=== PATIENT | female | born 1960 | race Caucasian/White ===

== ENCOUNTER 2020-07-12 08:57 | Observation (INO) | payer BC ==
[~2020-07-12] VITALS: Ht 162.6 cm; Wt 109.3 kg
[~2020-07-12 08:57] MED LIST: ASPIRIN EC81 MG PO
[2020-07-12 09:42] LABS: HEMOGLOBIN 10.5 gm/dl (12.3-15.3); RED BLOOD COUNT 4.3 M/UL (4.00-5.10); WHITE BLOOD COUNT 11.6 K/UL (4.5-11.0)
[2020-07-12 10:14] LABS: BUN/CREATININE RATIO 17 (0-10)
[2020-07-12] MEDS ORDERED: METOPROLOL SUCC50 MG PO (13:14)
[2020-07-12] MEDS ORDERED: HYDROCODONE-AC1 EAC1 PO (13:17)
[2020-07-12] MEDS ORDERED: ZYRTEC10 MG PO (14:56)
[2020-07-13 03:58] LABS: HEMOGLOBIN 9.4 gm/dl (12.3-15.3); RED BLOOD COUNT 3.88 M/UL (4.00-5.10); WHITE BLOOD COUNT 10.4 K/UL (4.5-11.0)
[2020-07-15] MEDS ORDERED: XOPENEX HFA15 GM INH (10:01)
[2020-07-15] MEDS ORDERED: METOPROLOL SUCC25 MG PO (10:01)
[2020-07-15] MEDS ORDERED: OMNICEF 300 MG300 MG PO (10:01)
[2020-07-15] MEDS ORDERED: ELIQUIS 5 MG TAB5 MG PO (10:01)
--- NOTE | 2020-07-15 10:59 | NUR ---
ROOM AIR OXYGEN SAT 87%.
[2020-07-15] MEDS ORDERED: DILTIAZEM 24HR180 M1 PO (11:40)
[2020-07-15] MEDS ORDERED: HYDROCODON-ACE1 EAC4 PO (14:29)
[2020-08-16] MEDS ORDERED: MULTAQ400 MG PO (08:23)
[2020-08-16] MEDS ORDERED: SOTALOL80 MG PO (10:27)
== END 2020-07-15 16:25 | disposition home or self-care (01) ==
LOC: ER1 08:57 → PROG CARE 12:52 → CDU 12:52 → PROG CARE 07-13 04:28
PROVIDERS: Emergency Medicine; Physician Assistant Medical; ADMIT Internal Medicine
DX: I48.91 Unspecified atrial fibrillation (principal); I10 Essential (primary) hypertension; D50.9 Iron deficiency anemia, unspecified; F17.210 Nicotine dependence, cigarettes, uncomplicated; J18.9 Pneumonia, unspecified organism; S22.42XA Multiple fractures of ribs, left side, initial encounter for closed fracture; Z88.0 Allergy status to penicillin; Z83.3 Family history of diabetes mellitus; Z79.01 Long term (current) use of anticoagulants; Z79.899 Other long term (current) drug therapy; Z20.822 Contact with and (suspected) exposure to COVID-19
CPT/HCPCS: ECHO; 36415; 70450; 71045; 80048; 80053; 80061; 82550; 82553; 82728; 83540; 83550; 83735; 83874; 83880; 84439; 84443; 84484; 85025; 85027; 85610; 85730; 87040; 87070; 87205; 93005; 93306; 94640; 94664; 94760; 96365; 96375; 96376; 99285; G0378; J0696; J1335; J2270; J2405; J2920; J2930; Q0177; Q9967; U0002

== ENCOUNTER → 2020-08-16 | Outpatient (CLI) | payer BC ==
[~2020-08-16] MED LIST changes: +DILTIAZEM 24HR180 M1 PO; +ELIQUIS 5 MG TAB5 MG PO; +HYDROCODON-ACE1 EAC4 PO; +HYDROCODONE-AC1 EAC1 PO; +METOPROLOL SUCC25 MG PO; +METOPROLOL SUCC50 MG PO; +MULTAQ400 MG PO; +OMNICEF 300 MG300 MG PO; +SOTALOL80 MG PO; +XOPENEX HFA15 GM INH; +ZYRTEC10 MG PO
[2020-08-16 08:27] LABS: HEMOGLOBIN 10.5 gm/dl (12.3-15.3); RED BLOOD COUNT 4.55 M/UL (4.00-5.10); WHITE BLOOD COUNT 6.7 K/UL (4.5-11.0)
== END ==
LOC: CATH 07:10
PROVIDERS: Internal Medicine Cardiovascular Disease
DX: I48.19 Other persistent atrial fibrillation (principal); I10 Essential (primary) hypertension; R55 Syncope and collapse; F17.200 Nicotine dependence, unspecified, uncomplicated; Z87.01 Personal history of pneumonia (recurrent); Z79.01 Long term (current) use of anticoagulants; Z82.49 Family history of ischemic heart disease and other diseases of the circulatory system; Z79.899 Other long term (current) drug therapy
CPT/HCPCS: 80048; 85027; 92960; 93005; J1200; J1742; J2250; J2310; J3010